=== PATIENT | female | born 1995 | race Caucasian/White ===

== ENCOUNTER 2022-04-10 14:47 | Outpatient (CLI) | payer BC | END 2022-04-10 15:45 | disposition home or self-care (01) | LOC: FBPOP 14:47 | PROVIDERS: ATTEND Obstetrics & Gynecology | DX: O48.0 Post-term pregnancy (principal); Z3A.40 40 weeks gestation of pregnancy; Z88.9 Allergy status to unspecified drugs, medicaments and biological substances | CPT/HCPCS: 59025 ==